=== PATIENT | male | born 1945 | race Caucasian/White ===

== ENCOUNTER 2019-03-13 08:35 | Emergency (ER) | payer BC ==
[~2019-03-13] VITALS: Ht 180.3 cm; Wt 88.0 kg
[~2019-03-13 08:35] MED LIST: AMLO5TAB4 PO; ATOR40TA68 PO; CIPR500T4 PO; METO-319 PO; RIVA15TA PO
[2019-03-13 08:39] VITALS: Ht 180.3 cm; Wt 88.0 kg
--- NOTE | 2019-03-13 09:52 | CONS ---
Consultation Date/Type/Reason Admit Date/Time Type of Consult Cardiology Date/Time of Note DATE: 03/13/19 TIME: 09:51 Hx of Present Illness please disregard. Wrong pt Past Medical History Home Meds Active Scripts Ciprofloxacin Hcl* (Ciprofloxacin Hcl*) 500 Mg Tablet, 500 MG PO BID for 7 Days, TAB Prov:WALTER CLEMONS 03/13/19 Social History Smoking Status: Never smoker Exam/Review of Systems Vital Signs Vitals Vital Signs Date Temp Pulse Resp B/P (MAP) Pulse Ox O2 O2 Flow FiO2 Time Delivery Rate 03/13/19 97.4 62 20 146/73 99 08:39 (97) Labs Result Diagram: 03/13/19 0908 03/13/19 0908 Results 24hrs Laboratory Tests Test 03/13/19 09:08 White Blood Count 7.3 Red Blood Count 4.65 L Hemoglobin 14.5 Hematocrit 44.4 Mean Corpuscular Volume 95.5 Mean Corpuscular Hemoglobin 31.2 Mean Corpuscular Hemoglobin Concent 32.7 Red Cell Distribution Width 12.8 Platelet Count 240 Mean Platelet Volume 9.0 Immature Granulocytes % 0.400 Neutrophils % 74.1 Lymphocytes % 14.9 L Monocytes % 9.1 Eosinophils % 1.1 Basophils % 0.4 Nucleated Red Blood Cells % 0.0 Immature Granulocytes # 0.030 Neutrophils # 5.4 Lymphocytes # 1.1 Monocytes # 0.7 Eosinophils # 0.1 Basophils # 0.0 Nucleated Red Blood Cells # 0.0 Prothrombin Time 18.9 H Prothrombin Time Ratio 1.5 INR International Normalized Ratio 1.57 Activated Partial Thromboplast Time 32.1 Urine Color YELLOW Urine Clarity CLEAR Urine pH 6.0 Urine Specific [place] 1.012 Urine Ketones NEGATIVE Urine Nitrite NEGATIVE Urine Bilirubin NEGATIVE Urine Urobilinogen NEGATIVE Urine Leukocyte Esterase NEGATIVE Urine Microscopic RBC 33 H Urine Microscopic WBC 7 H Urine Mucus FEW A Urine Hemoglobin 3+ H Urine Glucose NEGATIVE Urine Total Protein NEGATIVE Sodium Level 144 Potassium Level 3.9 Chloride Level 102 Carbon Dioxide Level 32 H Anion Gap 10 Blood Urea Nitrogen 19 Creatinine 1.36 H Est Glomerular Filtrat Rate mL/min Glucose Level 102 Calcium Level 9.7 CATHY LONG MD Mar 13, 2019 09:51
--- NOTE | 2019-03-13 09:59 | ERD ---
ER Documentation Chief Complaint Chief Complaint bleeding @ genital area, painless HPI 73-year-old male presents the emergency department complaining of painless hematuria. Patient states that he has been taking Xarelto for atrial fibrillation for some time now without complications or concerns. Beginning yesterday, he began havin g painless hematuria. He has no urinary retention. He reports no fevers, chills. He reports no bertah bleeding. There is only a small amount of blood in some of the times that he urinated but not with every urination. ROS All systems reviewed and are negative except as per history of present illness. Medications Home Meds Active Scripts Ciprofloxacin Hcl* (Ciprofloxacin Hcl*) 500 Mg Tablet, 500 MG PO BID for 7 Days, TAB Prov:WALTER CLEMONS 03/13/19 PMhx/Soc Hx Alcohol Use: No Hx Substance Use: No Hx Tobacco Use: No Smoking Status: Never smoker FmHx Noncontributory for chief complaint Physical Exam Vitals Vital Signs Date Temp Pulse Resp B/P (MAP) Pulse Ox O2 O2 Flow FiO2 Time Delivery Rate 03/13/19 97.4 62 20 146/73 99 08:39 (97) Physical Exam GENERAL: The patient is well developed and appropriate for usual state of health in no apparent distress HEENT: Pupils equal, round, and reactive to light. EOMI. There is no scleral icterus. NECK: C-spine is soft and supple, there is no meningismus. There is no cervical lymphadenopathy. LUNGS: Clear to auscultation bilaterally. There are no rales, wheezes or rhonchi. HEART: Regular rate and rhythm, no murmurs, clicks, rubs or gallops. ABDOMEN: Soft, non-tender, non-distended. There are bowel sounds in all four quadrants. No rebound or guarding. No bladder distention : No evidence of trauma or blood at the urethral meatus EXTREMITIES: There is no peripheral cyanosis or edema. No focal swelling or erythema. NEURO: The patient moves all four extremities with 5/5 strength. Cranial nerves II - XII are intact. Normal gait. Alert and oriented SKIN: There is no apparent rash or petechiae. HEME/LYMPHATIC: There is no evidence of excessive bruising or lymphedema. PSYCHIATRIC: The patient does not appear anxious or depressed. Result Diagram: 03/13/19 0908 03/13/19 0908 Results 24 hrs Laboratory Tests Test 03/13/19 09:08 White Blood Count 7.3 10^3/ul Red Blood Count 4.65 10^6/ul Hemoglobin 14.5 g/dl Hematocrit 44.4 % Mean Corpuscular Volume 95.5 fl Mean Corpuscular Hemoglobin 31.2 pg Mean Corpuscular Hemoglobin Concent 32.7 g/dl Red Cell Distribution Width 12.8 % Platelet Count 240 10^3/UL Mean Platelet Volume 9.0 fl Immature Granulocytes % 0.400 % Neutrophils % 74.1 % Lymphocytes % 14.9 % Monocytes % 9.1 % Eosinophils % 1.1 % Basophils % 0.4 % Nucleated Red Blood Cells % 0.0 /100WBC Immature Granulocytes # 0.030 10^3/ul Neutrophils # 5.4 10^3/ul Lymphocytes # 1.1 10^3/ul Monocytes # 0.7 10^3/ul Eosinophils # 0.1 10^3/ul Basophils # 0.0 10^3/ul Nucleated Red Blood Cells # 0.0 10^3/ul Prothrombin Time 18.9 Sec Prothrombin Time Ratio 1.5 INR International Normalized Ratio 1.57 Activated Partial Thromboplast Time 32.1 Sec Urine Color YELLOW Urine Clarity CLEAR Urine pH 6.0 Urine Specific [place] 1.012 Urine Ketones NEGATIVE mg/dL Urine Nitrite NEGATIVE mg/dL Urine Bilirubin NEGATIVE mg/dL Urine Urobilinogen NEGATIVE mg/dL Urine Leukocyte Esterase NEGATIVE [place] Urine Microscopic RBC 33 /HPF Urine Microscopic WBC 7 /HPF Urine Mucus FEW /HPF Urine Hemoglobin 3+ mg/dL Urine Glucose NEGATIVE mg/dL Urine Total Protein NEGATIVE mg/dl Sodium Level 144 mmol/L Potassium Level 3.9 mmol/L Chloride Level 102 mmol/L Carbon Dioxide Level 32 mmol/L Anion Gap 10 Blood Urea Nitrogen 19 mg/dl Creatinine 1.36 mg/dl Est Glomerular Filtrat Rate mL/min mL/min Glucose Level 102 mg/dl Calcium Level 9.7 mg/dl Procedures/MDM Patient was taken to a room, seen and evaluated. Comfort measures were initiated. Diagnostic tests were ordered and reviewed. REEVALUATION: 0950: Diagnostic tests were appreciated and discussed with the patient and his friend. Patient had a Levy catheter placed and drained only clear urine. He was not in urinary retention. There is no gross hematuria he does not require bladder irrigation. Patient remained clinically nontoxic. The catheter was removed and seems appropriate for discharge. MEDICAL DECISION MAKIN-year-old male presents to the emergency department with hematuria likely related to his Xarelto. At this time, patient shows no evidence of sepsis or obvious urinary tract infection, but given his age and comorbid conditions, I will empirically place him on antibiotics pending the results of his urine culture. Patient has no evidence of significant hemorrhage or obstruction and does not require either blood transfusion or bladder irrigation. He appears to be clinically nontoxic and seems appropriate for outpatient discharge. Departure Diagnosis: Primary Impression: Hematuria Additional Impression: Adverse drug reaction Condition: Stable Patient Instructions: Hematuria Additional Instructions: See your doctor for follow-up as discussed. Take a copy of your test results, if appropriate, to this follow-up visit. Please discuss your blood thinner with your doctor. See your doctor or return here if your symptoms do not improve as expected. At any time, please return to the emergency department for any change or worsening in her symptoms. WALTER CLEMONS Mar 13, 2019 09:59
[2019-03-13 10:10] VITALS: BP 139/78; PULSE 80; RESP 18
== END 2019-03-13 10:27 | disposition home or self-care (01) ==
LOC: E/R 08:35
DX: R31.9 Hematuria, unspecified (principal); T45.7X5A Adverse effect of anticoagulant antagonists, vitamin K and other coagulants, initial encounter
CPT/HCPCS: 36415; 80048; 81001; 85025; 85610; 85730; 87086